=== PATIENT | male | born 1990 | race Caucasian/White ===

== ENCOUNTER 2017-03-02 19:02 | Emergency (ER) | payer MEDICAID ==
[2017-03-02 19:13] VITALS: BP 123/75; PULSE 70; RESP 16; TEMP 98.4; O2SAT 97
[2017-03-02] MEDS ORDERED: IBUPROFEN 200 MG TAB PO ONE (19:19)
--- NOTE | 2017-03-02 19:44 | EDPHY ---
H & P Time Seen by Provider: 03/02/17 19:31 HPI/ROS: CHIEF COMPLAINT: Right ankle injury HISTORY OF PRESENT ILLNESS: The patient was running on a treadmill when the platform underneath the belt broke. His foot slipped into the treadmill machine on top with a belt. He then popped out and landed awkwardly on the side of the treadmill. He complains of right lateral ankle pain. It is moderate and does not radiate. There is noted swelling. He denies any other injury. He has no numbness or tingling. REVIEW OF SYSTEMS: My complete review of systems is negative except as mentioned in the HPI. Past Medical/Surgical History: Negative Past surgical history: Negative Smoking Status: Never smoked Physical Exam: Vitals noted General Appearance: Alert and no distress. Head: Pupils equal. Normal. Respiratory: No respiratory distress. Cardiac: regular rate and rhythm. Extremities: patient's right lower extremity has swelling over the lateral malleolus. There is significant tenderness inferior to the lateral malleolus. Patient also has mild tenderness palpation inferior to his medial malleolus. There is no midfoot or forefoot tenderness palpation. Skin: No rashes or lesions. Neuro: Alert. Normal mood and affect. Constitutional: Initial Vital Signs Temperature (C) 36.9 C 03/02/17 19:06 Heart Rate 70 03/02/17 19:06 Respiratory Rate 16 03/02/17 19:06 Blood Pressure 123/75 H 03/02/17 19:06 O2 Sat (%) 97 03/02/17 19:06 O2 Delivery Mode Room Air Allergies/Adverse Reactions: Penicillins Allergy (Verified 03/02/17 19:06) Home Medications: Medication Instructions Recorded NK [No Known Home Meds] 07/17/15 Medical Decision Making ED Course/Re-evaluation: In the emergency department I discussed possible etiologies with the patient. I answered all his questions. X-ray of his right ankle was ordered. Right ankle x-ray: Please refer the dictated report. I personally reviewed the images. Patient has swelling over his lateral malleolus. No fracture dislocation noted. I discussed the results with the patient. I answered all his questions. He was placed in a Alfa boot. He was given crutches and instruction on use. He will follow up with Orthopedics. Differential Diagnosis: My differential includes but is not limited to fracture, dislocation, contusion , sprain, strain - Data Points Medications Given: Discontinued Medications Ibuprofen (Motrin) 600 mg PO EDNOW ONE Stop: 03/02/17 19:20 Last Admin: 03/02/17 19:24 Dose: 600 mg Departure - Departure Disposition: Home, Routine, Self-Care Clinical Impression: Right ankle sprain Qualifiers: Encounter type: initial encounter Involved ligament of ankle: deltoid ligament Qualified Code(s): S93.421A - Sprain of deltoid ligament of right ankle, initial encounter Condition: Good Instructions: Ankle Sprain (ED) Additional Instructions: Your x-ray did not show any fracture. Wear your weiss boot until you follow up with Orthopedics. Referrals: Gavin Donald MD [Medical Doctor] - 5-7 days, call for appt.
== END 2017-03-02 19:50 | disposition home or self-care (01) ==
LOC: CED 19:02
DX: S93.421A Sprain of deltoid ligament of right ankle, initial encounter (principal); X58.XXXA Exposure to other specified factors, initial encounter; Y99.8 Other external cause status; Y93.02 Activity, running
CPT/HCPCS: 73610-PO; L4386